=== PATIENT | male | born 1990 | race Caucasian/White ===

== ENCOUNTER 2023-08-05 12:35 | Outpatient (CLI) | payer MEDICARE, SELFPAY ==
[2023-08-05 12:45] LABS: MANUAL DIFFERENTIAL MANUAL DIFFERENTIAL (MANUAL DIFF)
[2023-08-05 13:12] LABS: Basophils # 0.1 K/mm3 (0-0.2); Basophils % 1.1 % (0.1-2.0); Eosinophils # 0.2 K/mm3 (0.0-0.4); Eosinophils % 2.7 % (0.1-12.0); Hematocrit 45.2 % (42.0-52.0); Hemoglobin 15.5 g/dL (14.1-18.0); Lymphocytes # 1.9 K/mm3 (0.7-4.5); Lymphocytes % 32.6 % (10-50); Mean Corpuscular HGB Conc 34.3 g/dL (31.8-35.4); Mean Corpuscular Hemoglobin 28.9 pg (27.0-31.2); Mean Corpuscular Volume 84.2 fl (80-94); Mean Platelet Volume 11.6 fl (7.4-10.4); Monocytes # 0.3 K/mm3 (0.1-1.0); Monocytes % 5.4 % (1.7-9.3); Neutrophils # 3.4 K/mm3 (1.8-7.8); Neutrophils % 58.1 % (37.0-80.0); Red Blood Count 5.36 M/mm3 (4.60-6.20); Red Cell Distribution Width 14.6 % (11.5-17.5); White Blood Count 5.8 K/mm3 (4.8-10.8)
[2023-08-05 14:12] LABS: Platelet Count 46 K/mm3 (142-424)
[2023-08-05 14:20] LABS: Eosinophils % 6 % (0-3); Lymphocytes % 29 % (10-50); Monocytes % 4 % (2-9); Total Cells Counted 100
[2023-08-05 14:21] LABS: Band Neutrophils % 2 (0-8); Neutrophils % 59 % (42-76)
[2023-08-05 14:22] LABS: Platelet Estimate Marked Decrease; RBC Morphology Normal
[2023-08-07 12:44] LABS: Peripheral Smear Review Scanned Result
== END 2023-08-05 23:59 ==
LOC: LAB 12:41
PROVIDERS: PCP Nurse Practitioner Family; Visit Provider Nurse Practitioner Family
DX: D69.6 Thrombocytopenia, unspecified (principal)
CPT/HCPCS: 36415; 85007; 85014; 85018; 85048; 85049

== ENCOUNTER 2023-09-01 10:18 | Outpatient (CLI) | payer MEDICARE, SELFPAY ==
[2023-09-01 10:36] LABS: Basophils % 0.6 % (0.1-2.0); Eosinophils # 0.1 K/mm3 (0.0-0.4); Eosinophils % 3.3 % (0.1-12.0); Hematocrit 42.6 % (42.0-52.0); Hemoglobin 14.4 g/dL (14.1-18.0); Lymphocytes # 1.3 K/mm3 (0.7-4.5); Lymphocytes % 32.5 % (10-50); Mean Corpuscular HGB Conc 33.7 g/dL (31.8-35.4); Mean Corpuscular Hemoglobin 29.1 pg (27.0-31.2); Mean Corpuscular Volume 86.4 fl (80-94); Mean Platelet Volume 11.8 fl (7.4-10.4); Monocytes # 0.2 K/mm3 (0.1-1.0); Monocytes % 5.8 % (1.7-9.3); Neutrophils # 2.3 K/mm3 (1.8-7.8); Neutrophils % 57.9 % (37.0-80.0); Red Blood Count 4.93 M/mm3 (4.60-6.20); Red Cell Distribution Width 14.3 % (11.5-17.5); White Blood Count 3.9 K/mm3 (4.8-10.8)
[2023-09-01 10:40] LABS: Platelet Count 43 K/mm3 (142-424)
[2023-09-01 13:09] LABS: Folate 7.58 ng/mL
[2023-09-01 14:04] LABS: Vitamin B12 948 pg/mL (239-931)
[2023-09-03 10:59] LABS: Peripheral Smear Review Scanned Result
== END 2023-09-01 23:59 ==
LOC: LAB 10:19
PROVIDERS: PCP Nurse Practitioner Family; Visit Provider Internal Medicine Medical Oncology
DX: D69.8 Other specified hemorrhagic conditions (principal)
CPT/HCPCS: 36415; 82607; 82746; 85025